=== PATIENT | male | born 1960 | race Caucasian/White ===

== ENCOUNTER 2016-11-27 09:11 | Outpatient (CLI) | payer OTHER, MEDICAID ==
[2016-11-27] MEDS ORDERED: IOPAMIDOL-300 50 ML VIAL PO ONE (10:49)
[2016-11-27] MEDS ORDERED: IOPAMIDOL-300 100 ML VIAL IVP ONE (10:49)
--- NOTE | 2016-11-27 17:06 | CT Report ---
CONTRAST ENHANCED CT EXAM OF THE ABDOMEN AND PELVIS: 11/27/2016 CLINICAL HISTORY: Abdominal pain. TECHNIQUE: The patient received 100 mL of Isovue-[address] scan of the abdomen and pelvis were done. FINDINGS: The liver appears normal. The spleen demonstrates an 1 cm in diameter ring-shaped density in its superior aspect. This most likely is of a benign etiology. Its Hounsfield units are 192. It may represent granulomatous calcification. The pancreas appears normal. The gallbladder shows no wall thickening. The common hepatic and common bile ducts are normal. The adrenal glands are normal. The right kidney and ureter are normal. The left kidney demonstrates multiple nonobstructing calculi adjacent to one of the mid pole calices in the posterior aspect of this kidney. There are four small calculi adjacent to this mid pole calyx varying in size from 2 mm to 4 mm. The left ureter shows no evidence of obstruction. The bladder is normal. The periaortic and pericaval regions show no significant adenopathy. The vessels appear normal. The pelvis shows no significant abnormality. The bowel gas pattern demonstrates normal appendix. The colon shows no diverticula. The bones show no significant abnormality. IMPRESSION: 1. FOUR SMALL CALCULI ARE NOTED ADJACENT TO A MID POLE CALYX IN THE LEFT KIDNEY. THEY VARY IN SIZE BETWEEN 2 AND 4 MM. 2. A 1 CM IN DIAMETER DENSITY IS SEEN IN THE SUPERIOR ASPECT OF THE SPLEEN. THIS MAY REPRESENT SOME GRANULOMATOUS CALCIFICATION. 3. NORMAL APPENDIX. In accordance with CT protocol optimization, one or more of the following dose reduction techniques were utilized for this exam: automated exposure control, adjustment of mA and/or KV based on patient size, or use of iterative reconstructive technique. JOB #: [id number] EXT JOB #: [id number] TANIKA
== END 2016-11-27 09:12 | disposition home or self-care (01) ==
LOC: DI 09:11
PROVIDERS: ATTEND Nurse Practitioner Family
DX: N20.0 Calculus of kidney (principal); R93.5 Abnormal findings on diagnostic imaging of other abdominal regions, including retroperitoneum
CPT/HCPCS: 74177; Q9967

== ENCOUNTER 2019-02-06 08:25 | Outpatient (CLI) | payer SELFPAY | END 2019-02-06 08:26 | disposition home or self-care (01) | LOC: LAB 08:25 | DX: Z01.89 Encounter for other specified special examinations (principal) | CPT/HCPCS: 36415 ==

== ENCOUNTER 2022-07-05 15:24 | Outpatient (CLI) | payer OTHER ==
[2022-07-05] MEDS ORDERED: GADOBUTROL 10 MMOL/10 ML VIAL ONE (15:40)
[2022-07-05] MEDS ORDERED: GADOBUTROL 10 MMOL/10 ML VIAL IVP ONE (16:55)
--- NOTE | 2022-07-06 08:25 | MRI Report ---
PROCEDURE: BRAIN W/WO INDICATIONS: MUSCLE WEAKNESS, POLYNEUROPATHY CONTRAST: 7.5 gadavist TECHNIQUE: Noncontrast axial T1 spin echo, axial T2 fast spin echo, sagittal and axial FLAIR, coronal T2 fast sp in echo, axial gradient echo, axial diffusion and ADC through the brain. After the administration of contrast, axial and coronal T1 spin echo with fat saturation through the brain. COMPARISON: None. FINDINGS: Image quality: Excellent. CSF spaces: Basal cisterns are patent. No extra-axial fluid collections. Ventricles are normal in size and shape. Brain: No midline shift. No intracranial bleeds or masses. No abnormal intracranial enhancement. There is cerebral volume loss for age. The brainstem appears normal. Diffusion-weighted images demon strate no acute ischemic insults. No chronic ischemic insults. Normal intravascular flow voids are present. Skull and face: Calvarial marrow is normal in signal. Orbits appear normal. Sinuses: Sinuses and mastoids appear clear. IMPRESSION: 1. Mild diffuse cerebral volume loss. 2. No acute process. No recent infarct. Reviewed by: Rahel Juárez MD on 07/06/2022 8:23 AM PST Approved by: Rahel Juárez MD on 07/06/2022 8:23 AM PST Station ID: [id number]
--- NOTE | 2022-07-06 11:23 | MRI Report ---
PROCEDURE: CERVICAL SPINE W/WO INDICATIONS: MUSCLE WEAKNESS, POLYNEUROPATHY CONTRAST: 7.5 gadavist TECHNIQUE: Noncontrast sagittal T1 spin echo and T2 fast spin echo, sagittal STIR, sagittal PD fast spin echo, f oraminal oblique sagittal T2 fast spin echo, axial gradient echo or T2 fast spin echo through the cer vical spine. After the administration of contrast, sagittal and axial T1 spin echo with fat saturati on through the cervical spine. COMPARISON: Correlation is made with the accompanying brain MRI, 07/06/2022. FINDINGS: Image quality: Motion artifact is noted. Alignment and curvature: There is normal bony alignment. Marrow: Marrow demonstrates normal overall signal. Spinal cord: Visualized spinal cord is normal in size, without white matter lesions. No suspicious intramedullary enhancement. No cerebellar tonsillar herniation. Paraspinous soft tissues: No paravertebral masses or suspicious enhancement. C2-C3: Normal in appearance. C3-C4: Mild disc bulge is seen. Moderate disc osteophyte complex is seen, with a central disc ost eophyte protrusion. Moderate facet hypertrophy is seen, left worse than right. Moderate to severe rubia ateral neuroforaminal narrowing can be seen. Moderate to severe central canal narrowing is seen, with associated ventral cord flattening, as on series 10 image 11. C4-C5: Moderate loss of disc height and signal are seen. Moderate disc osteophyte complex is seen, w hich is eccentric to the right. Uncovertebral joint hypertrophy is seen at this level. Moderate fa cet hypertrophy is seen. Moderate to severe bilateral neuroforaminal narrowing can be seen. Moderate to severe central canal narrowing is seen, with associated ventral cord flattening, as on series 10 image 17. C5-C6: Moderate loss of disc height and signal are seen. Moderate disc osteophyte complex is seen, with a central/left disc osteophyte protrusion. Uncovertebral joint hypertrophy is seen at this lev el. Moderate facet hypertrophy is seen. There is at least moderate bilateral neuroforaminal narrow ing seen. Moderate to severe central canal narrowing is seen, with associated ventral cord flattening , as on series 10 image 24. C6-C7: Moderate loss of disc height and signal are seen. At least moderate disc osteophyte complex i s seen. There is a central/left disc osteophyte protrusion. Uncovertebral joint hypertrophy is seen at this level. Moderate facet hypertrophy is seen. There is moderate to severe bilateral neurofora jordy narrowing seen, right worse than left. At least moderate central canal narrowing is seen, with associated ventral cord flattening, as on series 10 image 31. C7-T1: Mild loss of disc height and disc signal are seen. Mild to moderate disc osteophyte complex i s seen. Moderate facet hypertrophy is seen. There is at least moderate right-sided and moderate lef t-sided neuroforaminal narrowing. Minimal central canal narrowing is seen. IMPRESSION: Multiple levels of significant cervical spine degenerative change can be seen. No definite abnormal cord signal can be seen. No abnormal enhancement can be seen. Reviewed by: Robson Ayon MD on 07/06/2022 10:22 AM [facility] Approved by: Robson Ayon MD on 07/06/2022 10:22 AM [facility] Station ID: [id number]
== END 2022-07-05 15:25 | disposition home or self-care (01) ==
LOC: LAB 15:24
PROVIDERS: ATTEND Naturopath
DX: G62.9 Polyneuropathy, unspecified (principal); M62.81 Muscle weakness (generalized); Z13.858 Encounter for screening for other nervous system disorders; M47.812 Spondylosis without myelopathy or radiculopathy, cervical region; M48.02 Spinal stenosis, cervical region; M50.321 Other cervical disc degeneration at C4-C5 level; M47.813 Spondylosis without myelopathy or radiculopathy, cervicothoracic region; M50.03 Cervical disc disorder with myelopathy, cervicothoracic region; M50.13 Cervical disc disorder with radiculopathy, cervicothoracic region; M48.03 Spinal stenosis, cervicothoracic region
CPT/HCPCS: 36415; 70553; 72156; 82565; A9585

== ENCOUNTER 2022-08-11 09:34 | Outpatient (CLI) | payer OTHER ==
--- NOTE | 2022-08-11 10:48 | XRAY Report ---
PROCEDURE: Lumbar Spine 2 View INDICATIONS: POLYNEUROPATHY TECHNIQUE: 2 views of the lumbar spine were acquired. COMPARISON: CT abdomen and pelvis, 11/27/2016. FINDINGS: Bones: 5 [id number] vertebrae are present. There is normal bony alignment. No vertebral body compression fractures. No suspicious bony lesions. Mild degenerative disc and facet disease at L4-L 5 and L5-S1. Soft tissues: Overlying bowel gas pattern is normal. Calcific densities in the left upper quadrant a re compatible with renal stones. IMPRESSION: 1. Mild degenerative disc and facet disease at L5 L5 and L5-S1. 2. Left renal calculi. Reviewed by: Sultana Ku MD on 08/11/2022 10:47 AM [facility] Approved by: Sultana Ku MD on 08/11/2022 10:47 AM [facility] Station ID: [id number]
== END 2022-08-11 09:35 | disposition home or self-care (01) ==
LOC: DI.S 09:34
PROVIDERS: ATTEND Naturopath
DX: M47.816 Spondylosis without myelopathy or radiculopathy, lumbar region (principal); G62.9 Polyneuropathy, unspecified; M51.36 Other intervertebral disc degeneration, lumbar region; M51.37 Other intervertebral disc degeneration, lumbosacral region; N20.0 Calculus of kidney